=== PATIENT | female | born 1935 | race Caucasian/White ===

== ENCOUNTER → 2019-04-14 | Outpatient (CLI) | payer OTHER, MEDICARE ==
[~2019-04-14] MED LIST: ASCO500T9 PO; CALC600T12 PO; CHOL100018 PO; IRON PO; MAGNESIUM PO; MULTIVITAMIN PO; NSAID PO; PANT40TA25 PO; PRAV40TA3 PO
== END | disposition home or self-care (01) ==
LOC: RAH 13:18
PROVIDERS: ATTEND Family Medicine
DX: L72.3 Sebaceous cyst (principal); R22.41 Localized swelling, mass and lump, right lower limb
CPT/HCPCS: 76882